=== PATIENT | female | born 1990 | race Caucasian/White ===

== ENCOUNTER 2016-04-29 18:08 | Inpatient (IN) | payer SELFPAY ==
[~2016-04-29] VITALS: Ht 160 cm; Wt 91.5 kg
[~2016-04-29 18:08] MED LIST: ATIVAN 0.50.5 MG/TAB PO; BACTRIM DS 8001 TAB PO; CLEOCIN HC150 MG/CAP PO; COLACE 100100 MG/CAP PO; DITROPAN 5MG TAB5 MG PO; LEVAQUIN 750MG750 M1 PO; LEXAPRO 10MG10 MG PO; MILK OF MA400 MG/52 PO; NORCO 325 MG-51 TAB PO; NULEV0.125 M1 PO; PERCOCET 325 MG1 TA2 PO; ROXICODONE 55 MG/TAB PO; SENNA8.6 MG PO; TOPROL XL 25MG25 MG PO; ZOFRAN 4MG T4 MG/TAB PO; ZOFRAN ODT4 MG PO; ZOFRAN8 MG PO
[2016-04-29 19:25] LABS: PH 5 (5-8); URINE BACTERIA Many /hpf; URINE BILIRUBIN Negative (NEGATIVE); URINE BLOOD 1+ (NEGATIVE); URINE GLUCOSE Negative (NEGATIVE); URINE KETONE Negative (NEGATIVE); URINE UROBILINOGEN Negative (NEGATIVE); URINE WBC >50 /hpf
[2016-04-29 19:28] LABS: URINE APPEARANCE Turbid; URINE COLOR Yellow
[2016-04-29 19:51] LABS: ADJUSTED CALCIUM 9.2 mg/dL (8.4-10.2); ALBUMIN 4.3 gm/dL (3.5-5.0); BILIRUBIN,TOTAL 0.8 mg/dL (0.0-1.0); C-REACTIVE PROTEIN 4.6 mg/dL (0.0-0.9); CALCIUM 9.4 mg/dL (8.4-10.2); CREATININE, serum 0.94 mg/dL (0.52-1.25); POTASSIUM 3.7 mmol/L (3.4-5.0); TOTAL PROTEIN 8.6 gm/dL (6.4-8.2)
[2016-04-29 19:57] LABS: BASO % 0.3 % (0.0-2.0); EOS # 0.1 (0.0-0.7); EOS % 0.6 % (0-4.0); GRAN # 8.2 (1.4-6.5); GRAN % 71.7 % (42.2-75.2); HEMOGLOBIN 14.6 g/dl (12.5-16.0); LYMPH % 17.1 % (20.0-51.0); MEAN CELL VOLUME 83 fl (80.0-100.0); MEAN CORPUSCULAR HEMOGLOBIN 27 pg (27.0-31.0); MEAN CORPUSCULAR HGB CONC 32 g/dl (33.0-37.0); MEAN PLATELET VOLUME 11.3 fl (7.4-10.4); MONO # 1.1 (0.1-0.6); MONO % 9.9 % (1.7-9.3); PLATELET COUNT 241 K/mm3 (130-400); WHITE BLOOD COUNT 11.4 K/mm3 (4.8-10.8)
[2016-04-29 21:50] LABS: PH 6 (5-8); URINE APPEARANCE Cloudy; URINE BACTERIA Moderate /hpf; URINE BILIRUBIN Negative (NEGATIVE); URINE BLOOD 1+ (NEGATIVE); URINE COLOR Yellow; URINE GLUCOSE Negative (NEGATIVE); URINE KETONE Negative (NEGATIVE); URINE UROBILINOGEN Negative (NEGATIVE); URINE WBC >50 /hpf
[2016-04-30 01:16] VITALS: BP 149/101; PULSE 104; TEMP 98.2
[2016-04-30 04:00] VITALS: BP 145/98; PULSE 113; TEMP 98.8
[2016-04-30 09:11] VITALS: BP 135/75; PULSE 116; TEMP 100.4
[2016-04-30 12:57] VITALS: BP 115/71; PULSE 102; TEMP 100.7
[2016-04-30 16:47] VITALS: BP 130/83; PULSE 114; TEMP 100
[2016-04-30 20:27] VITALS: BP 127/87; PULSE 101; TEMP 101.4
[2016-05-01 00:47] VITALS: BP 120/74; PULSE 97; TEMP 98.8
[2016-05-01 04:19] VITALS: BP 123/82; PULSE 93; TEMP 98.6
[2016-05-01 08:12] VITALS: BP 138/89; PULSE 110; TEMP 98.7
[2016-05-01 11:40] VITALS: BP 119/69; PULSE 85; TEMP 98
[2016-05-01 16:22] VITALS: BP 123/83; PULSE 80; TEMP 98.2
[2016-05-01 20:18] VITALS: BP 135/77; PULSE 81; TEMP 97.2
[2016-05-02 00:08] VITALS: BP 119/74; PULSE 70; TEMP 97.6
[2016-05-02 04:12] VITALS: BP 113/71; PULSE 65; TEMP 97.5
[2016-05-02 08:26] VITALS: BP 122/84; PULSE 71; TEMP 97.9
[2016-05-02 12:18] VITALS: BP 115/88; PULSE 71; TEMP 97.5
[2016-05-02] MEDS ORDERED: PHENERGAN 25 TA25 MG PO (13:18)
[2016-05-02] MEDS ORDERED: BACTRIM DS 8001 TAB PO (13:20)
[2016-05-02] MEDS ORDERED: NORCO 325 MG-51 TAB PO (13:21)
== END 2016-05-02 15:15 | disposition home or self-care (01) | DRG 690 ==
LOC: COL.ER 18:08 → MEDICAL 22:23
PROVIDERS: Emergency Medicine
DX: N10 Acute pyelonephritis (principal); N13.30 Unspecified hydronephrosis; Q62.8 Other congenital malformations of ureter; B96.20 Unspecified Escherichia coli [E. coli] as the cause of diseases classified elsewhere; Z88.0 Allergy status to penicillin
CPT/HCPCS: 99223-AI; 99232-AI; 99239; J1170; J1580; J1650; J2060; J2550; J7030; Q9967

== ENCOUNTER 2016-06-18 02:51 | Emergency (ER) | payer SELFPAY ==
[~2016-06-18] VITALS: Ht 160 cm; Wt 90.0 kg
[~2016-06-18 02:51] MED LIST changes: +PHENERGAN 25 TA25 MG PO
[2016-06-18 02:53] VITALS: TEMP 98.1
[2016-06-18 03:26] LABS: PH 6 (5-8); SQUAMOUS EPITHELIAL 0-2 /hpf; URINE APPEARANCE Hazy; URINE BACTERIA Rare /hpf; URINE BILIRUBIN Negative (NEGATIVE); URINE BLOOD 1+ (NEGATIVE); URINE COLOR Yellow; URINE GLUCOSE Negative (NEGATIVE); URINE KETONE Negative (NEGATIVE); URINE UROBILINOGEN Negative (NEGATIVE); URINE WBC >50 /hpf
[2016-06-18 03:52] LABS: BASO % 0.5 % (0.0-2.0); EOS # 0.1 (0.0-0.7); EOS % 1.5 % (0-4.0); GRAN # 4.8 (1.4-6.5); GRAN % 56.4 % (42.2-75.2); HEMATOCRIT 41.3 % (37.0-47.0); HEMOGLOBIN 13.7 g/dl (12.5-16.0); LYMPH # 2.7 (1.2-3.4); LYMPH % 31.5 % (20.0-51.0); MEAN CELL VOLUME 82 fl (80.0-100.0); MEAN CORPUSCULAR HEMOGLOBIN 27 pg (27.0-31.0); MEAN CORPUSCULAR HGB CONC 33 g/dl (33.0-37.0); MEAN PLATELET VOLUME 10.5 fl (7.4-10.4); MONO # 0.8 (0.1-0.6); MONO % 9.4 % (1.7-9.3); PLATELET COUNT 246 K/mm3 (130-400); RED BLOOD COUNT 5.03 M/mm3 (4.10-5.30); REDCELL DISTRIBUTION WIDTH-CV 14.6 % (11.5-14.5); WHITE BLOOD COUNT 8.5 K/mm3 (4.8-10.8)
[2016-06-18 04:03] LABS: ALBUMIN 4.1 gm/dL (3.5-5.0); BILIRUBIN,TOTAL 0.5 mg/dL (0.0-1.0); C-REACTIVE PROTEIN 3.6 mg/dL (0.0-0.9); CALCIUM 9.1 mg/dL (8.4-10.2); CREATININE, serum 0.88 mg/dL (0.52-1.25); POTASSIUM 4.3 mmol/L (3.4-5.0)
[2016-06-18] MEDS ORDERED: SEPTRA DS 8001 TAB PO (05:34)
[2016-06-18] MEDS ORDERED: NORCO 325 MG-51 TAB PO (05:34)
[2016-06-18 05:39] VITALS: BP 136/68; PULSE 93
== END 2016-06-18 05:54 | disposition home or self-care (01) ==
LOC: COL.ER 02:51
PROVIDERS: Emergency Medicine
DX: N39.0 Urinary tract infection, site not specified (principal); B96.20 Unspecified Escherichia coli [E. coli] as the cause of diseases classified elsewhere; Z87.448 Personal history of other diseases of urinary system
CPT/HCPCS: J1170; J2405; J7030